=== PATIENT | female | born 1975 | race Caucasian/White ===

== ENCOUNTER → 2018-08-30 | Outpatient (CLI) | payer OTHER ==
--- NOTE | 2018-08-30 13:36 | MM ---
Reason for exam: screening (asymptomatic). Baseline mammogram. History: Patient has history of other cancer at age 40. Physical Findings: Nurse did not find any significant physical abnormalities on exam. MG Screening Mammo w CAD Bilateral CC and MLO view(s) were taken. LM and LM with magnification view(s) were taken of the left breast. The breast tissue is heterogeneously dense. This may lower the sensitivity of mammography. There are regional fine calcifications in the left breast upper outer posterior positions. No suspicious cluster of calcification. There is nodularity in the left upper outer quadrant and ultrasound is recommended. ASSESSMENT: Incomplete: need additional imaging evaluation, BI-RAD 0 RECOMMENDATION: Ultrasound of the left breast.
--- NOTE | 2018-08-30 13:55 | USB ---
History: Patient has history of other cancer at age 40. US Breast Workup LT Left complete breast ultrasound includes all four quadrants, the retroareolar region and axilla. Finding demonstrates a 5 x 5 x 5 mm hypoechoic lesion at 12 o'clock, this may have posterior shadowing a biopsy is recommeded, a 1.3 x 1.0 x 1.1 cm oval Hypoechoic lesion at 2 o'clock, a 1.1 x 0.5 x 1.0 cm oval cystic lesion at 3 o'clock, a 5 x 3 x 5 mm oval to small to charectorized lesion at 11 o'clock , and a 1.0 x 0.7 x 0.9 cm oval hypoechoic lesion at 11 o'clock. In the absence of suspicious biopsy findings a 6 month follow up ultrasound of the left breast should be performed. For the lesion at 12 o'clock an ultrasound core is recommended. ASSESSMENT: Suspicious, BI-RAD 4 RECOMMENDATION: Ultrasound core biopsy of the left breast. Called Dr. Boyer with mammographic findings and has scheduled an appointment for the patient for 09/13/18 at 4:00pm with Dr. Sage. The ultrasound core biopsy is scheduled for 09/14/18 at 11:30 am. PRELIMINARY REPORT CALLED AND FAXED TO DR. SAGE ON 08/30/18. Ultrasound of the left breast in 6 months.
== END ==
LOC: RADMAMWWP 08:26
PROVIDERS: ATTEND Internal Medicine
DX: Z12.31 Encounter for screening mammogram for malignant neoplasm of breast (principal); R92.8 Other abnormal and inconclusive findings on diagnostic imaging of breast
CPT/HCPCS: 77067

== ENCOUNTER → 2018-09-13 | Outpatient (CLI) | payer OTHER ==
[2018-09-13 16:37] VITALS: BP 126/85; PULSE 85; RESP 18; TEMP 98.5
--- NOTE | 2018-09-13 16:50 | P.GSHP ---
History of Present Illness H&P Date: 09/13/18 Chief Complaint: abnormal ultrasound of the left breast Kyleigh is a 43-year-old white female who had her first ever mammogram performed on 120 [id number]. Following this it was recommended she undergo an ultrasound of the left breast for some nodularity in the upper outer quadrant area. On ultrasound she was noted to have a 5 x 5 mm hypoechoic lesion at 12: 00 for which ultrasound-guided core biopsy was recommended. Several other cystic type lesions were identified which were felt to be non-worrisome. The patient does not feel anything of concern in her breasts. She has no nipple discharge or skin changes of concern. She does not complain of any new breast pain. Family history: great grandmother maternal: ? type patient: melanoma in 2016 Hormonal History: menarche: 11 : 3, 3 children, breast fed: no, age at first: 19 periods: regular BCP: 1 year hormones: none Past surgical history: 1. Gallbladder 2. 3. Tonsillectomy 4. Mole excision Past Medical History: none Social History: smoke: none alcohol: three times/week drugs: none - Constitutional Constitutional: Reports sweats - EENT Comment: floaters in both eyes Eyes: denies pain Ears: deny: decreased hearing, tinnitus Ears, nose, mouth and throat: Denies headache, Denies sore throat - Breasts Breasts: bilateral: as per HPI - Cardiovascular Cardiovascular: Denies chest pain, Denies shortness of breath - Respiratory Respiratory: Denies cough, Denies 7 - Gastrointestinal Comment: nausea prior to BM Gastrointestinal: Reports nausea, Denies abdominal pain, Denies diarrhea, Denies vomiting - Genitourinary (Female) Genitourinary: Denies dysuria, Denies hematuria - Menstruation Menstruation: Reports period normal - Musculoskeletal Comment: 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, right elbow - Integumentary Integumentary: Denies pruritus, Denies rash - Neurological Neurological: Denies numbness, Denies weakness - Psychiatric Psychiatric: Reports anxiety, Denies depression - Endocrine Endocrine: Denies fatigue, Denies weight change - Hematologic/Lymphatic Comment: none - Allergic/Immunologic Allergic/Immunologic: Reports seasonal allergies Past Medical History Past Medical History: Cancer, GERD/Reflux Additional Past Medical History / Comment(s): sinus problems, melanoma (all clear as July 2018), chronic pelvic pain History of Any Multi-Drug Resistant Organisms: None Reported Past Surgical History: Section, Cholecystectomy, Tonsillectomy, Uterine Ablation Additional Past Surgical History / Comment(s): x1 (1994), Past Anesthesia/Blood Transfusion Reactions: No Reported Reaction Additional Past Anesthesia/Blood Transfusion Reaction / Comment(s): Pt had a blood transfusion d/t decreased hemoglobin secondary to heavy menstural periods Past Psychological History: No Psychological Hx Reported Smoking Status: Never smoker Past Alcohol Use History: Daily Additional Past Alcohol Use History / Comment(s): 3x week Past Drug Use History: Marijuana Additional Drug Use History / Comment(s): uses marijuana daily Medications and Allergies Home Medications Medication Instructions Recorded Confirmed Type No Known Home Medications 09/13/18 09/13/18 History Allergies Allergy/AdvReac Type Severity Reaction Status Date / Time ciprofloxacin [From Cipro] AdvReac Vomiting Verified 09/13/18 16:28 Surgical - Exam - General well developed, well nourished, no distress - Eyes normal ocular movement - ENT no hearing loss, no congestion - Neck no masses, trachea midline - Respiratory normal respiratory effort, clear to auscultation - Cardiovascular Rhythm: regular Heart Sounds: normal: S1, S2 - Abdomen Abdomen: soft, non tender, no guarding, no rigid, no rebound - Integumentary Well-healed scar left flank from resection of melanoma Scattered nevi on at the edge of the scar towards the medial aspect - Neurologic no disoriented, no combative - Musculoskeletal normal gait, normal posture - Psychiatric oriented to time, oriented to person, oriented to place, speech is normal, memory intact Breast examination: Right breast: Multi-positional exam no dominant masses or nodules of concern Right axilla: No adenopathy of concern Left breast: Multi-positional exam no dominant masses or nodules of concern Left axilla: No adenopathy of concern Scattered nevi on the breast are identified patient is recommended to follow with dermatology tattoo left chest wall Results Mammogram and ultrasound report reviewed Assessment and Plan Assessment: Impression: 1. Radiographic abnormality left breast 2. Bilateral fibrocystic breast changes 3. History of melanoma 4. Nevi as mentioned and physical exam Plan: 1. Ultrasound-guided core biopsy of left breast 2. Follow up with dermatology 3. Follow-up. One week after ultrasound core biopsy of left breast CC:DR. Boyer
== END ==
LOC: WWCWWP 16:00
PROVIDERS: ATTEND Surgery
DX: Z53.9 Procedure and treatment not carried out, unspecified reason (principal)

== ENCOUNTER → 2018-09-14 | Day surgery (SDC) | payer OTHER ==
[2018-09-14 10:49] VITALS: RESP 16; BMI 35.6
[2018-09-14 12:08] VITALS: BP 141/82; PULSE 66; TEMP 98.5
--- NOTE | 2018-09-14 12:46 | USB ---
EXAMINATION TYPE: US biopsy breast VAD LT, MG diagnostic mammo LT wo CAD DATE OF EXAM: 09/14/2018 CLINICAL HISTORY: R92.8 ABN MAMMO. TECHNIQUE: Ultrasound guided core biopsy of left breast in the upper-outer quadrant. COMPARISON: 08/30/2018 FINDINGS: The procedure of ultrasound guided core biopsy was explained to the patient. Benefits, alternatives, and risks were discussed. An informed consent was then obtained. Preprocedural timeout was performed. The patient was placed in supine positioning for imaging and for the procedure. The overlying skin was prepped and draped in usual sterile fashion. 10 cc of lidocaine buffered with bicarbonate was used as anesthetic into the skin and subcutaneous tissue up to the prior by 5 x 5 mm hypoechoic lesion near the 12: 00 position in zone B/C. Under ultrasound guidance, a 12-gauge vacuum assisted biopsy gun device was used to obtain 4 core samples. Following this, a coil-shaped biopsy marker at the biopsy site. The patient tolerated the procedure well without any immediate complication. The patient was kept in the radiology department for short stay after the procedure and then discharged home in stable condition. IMPRESSION: Successful, uncomplicated ultrasound guided core biopsy of area of a 5 x 5 x 5 mm mass near the 12:00 position of the left breast, full pathology results to follow. There are other probably benign left breast matches seen on the ultrasound dated 08/30/2018 for which six-month follow-up was recommended. Pathology Results: Benign LEFT BREAST, ULTRASOUND GUIDED CORE BIOPSY: Fibroadenoma. Recommendation Follow up ultrasound of the left breast in 6 months. Attention to the 2 o'clock and 11 o'clock and two lesions which were not biopsied. LASHONDAD
== END ==
LOC: RADUSWWP 10:32
PROVIDERS: ATTEND Surgery
DX: D24.2 Benign neoplasm of left breast (principal)
CPT/HCPCS: 88305; 77065; 19083; A4648; J2001

== ENCOUNTER → 2018-09-18 | Outpatient (CLI) | payer OTHER ==
--- NOTE | 2018-09-18 12:02 | US ---
EXAMINATION TYPE: US pelvic complete DATE OF EXAM: 09/18/2018 COMPARISON: US 09/01/2015 CLINICAL HISTORY: 43-year-old female R10.2 Pelvic pain. TECHNIQUE: Transabdominal sonographic images of the pelvis were acquired. Date of LMP: LMP about 3 weeks ago FINDINGS: EXAM MEASUREMENTS: Uterus: 10.6 x 5.9 x 5.9 cm Endometrial Stripe: 1.4 cm Right Ovary: 2.2 x 1.5 x 1.9 cm Left Ovary: 3.1 x 1.4 x 2.6 cm 1. Uterus: Anteverted. Heterogeneous myometrium. 2. Endometrium: Measuring normal for patient's phase of cycle 3. Right Ovary: wnl 4. Left Ovary: wnl 5. Bilateral Adnexa: wnl 6. Posterior cul-de-sac: wnl IMPRESSION: 1. Myometrial heterogeneity is nonspecific but may be seen in the setting of adenomyosis or diffuse s mall fibroid change. 2. Endometrial stripe measures 1.4 cm and should correspond to the late secretory phase of the menstr ual cycle.
== END | disposition home or self-care (01) ==
LOC: RADUSWWP 08:57
PROVIDERS: ATTEND Obstetrics & Gynecology
DX: R10.2 Pelvic and perineal pain (principal)
CPT/HCPCS: 76856

== ENCOUNTER → 2018-09-20 | Outpatient (CLI) | payer OTHER ==
[2018-09-20 15:09] VITALS: BP 133/66; PULSE 75; RESP 18; TEMP 98.2
--- NOTE | 2018-09-20 15:16 | P.PN ---
Subjective Progress Note Date: 09/20/18 Principal diagnosis: fibroadenoma Kyleigh is a 43-year-old white female status post ultrasound-guided core biopsy of the left breast on . Pathology revealed a fibroadenoma. The patient has Some mild ecchymosis but otherwise no complaints related to the procedure. Objective - Vital Signs Vital signs: Vital Signs Temp 98.2 F 09/20/18 15:06 Pulse 75 09/20/18 15:06 Resp 18 09/20/18 15:06 BP 133/66 09/20/18 15:06 Pulse Ox 96 09/20/18 15:06 Intake & Output 09/19/18 09/20/18 09/20/18 18:59 06:59 18:59 Weight 90.718 kg - Constitutional General appearance: Present: obese - EENT Eyes: Present: EOMI ENT: Present: hearing grossly normal - Respiratory Respiratory: bilateral: CTA - Cardiovascular Rhythm: regular Heart sounds: normal: S1, S2 - Musculoskeletal Musculoskeletal: Present: gait normal - Psychiatric Psychiatric: Present: A&O x's 3, appropriate affect, intact judgment & insight - Additional findings Additional findings: Left breast core biopsy site mild ecchymosis No hematoma No evidence of infection Assessment and Plan Assessment: Impression: 1. Left breast core biopsy/ultrasound guided, fibroadenoma 2. Fibrocystic breast changes 3. History of melanoma Plan: 1. Repeat left breast mammogram and ultrasound in 6 months time 2. Physician exam after mammogram and ultrasound 3. Follow-up with dermatology Cc: Dr. Boyer
== END ==
LOC: WWCWWP 14:50
PROVIDERS: ATTEND Surgery
DX: Z53.9 Procedure and treatment not carried out, unspecified reason (principal)

== ENCOUNTER 2018-10-09 10:33 | Emergency (ER) | payer OTHER ==
[2018-10-09 11:02] VITALS: BP 128/68; PULSE 106; RESP 18; TEMP 98.5
--- NOTE | 2018-10-09 11:25 | ED ---
General Adult HPI - General Chief complaint: ENT Stated complaint: FB in throat Time Seen by Provider: 10/09/18 11:03 Source: patient Mode of arrival: ambulatory Limitations: no limitations - History of Present Illness Initial comments: Dictation was produced using [employer] dictation software. please excuse any grammatical, word or spelling errors. Chief Complaint: 43-year-old female presents with foreign body sensation in the throat History of Present Illness: She is a 43-year-old female past medical history of GERD, reflux presents with foreign body sensation in the oropharynx region. Patient states her symptoms have been ongoing for approximately 3 weeks. States that she feels a palpable mass on the left face and tongue. She states that it's slightly painful when she swallows. Denies any other symptoms at this time. No difficulty breathing or difficulty swallowing. Fevers or B type symptoms. The ROS documented in this emergency department record has been reviewed and confirmed by me. Those systems with pertinent positive or negative responses have been documented in the HPI. All other systems are other negative and/or noncontributory. PHYSICAL EXAM: General Impression: Alert and oriented x3, not in acute distress HEENT: Normocephalic atraumatic, extra-ocular movements intact, pupils equal and reactive to light bilaterally, mucous membranes moist, small 3 x 3 mm area of induration at the base of the tongue just anterior to the left anterior raphe Cardiovascular: Heart regular rate and rhythm, S1&S2 audible, no murmurs, rubs or gallops Chest: Lungs clear to auscultation bilaterally, no rhonchi, no wheeze, no rales Abdomen: Bowel sounds present, abdomen soft, non-tender, non-distended, no organomegaly Musculoskeletal: Pulses present and equal in all extremities, no peripheral edema Motor: Power 5/5 bilaterally, no focal deficits noted Neurological: CN II-XII grossly intact, no focal motor or sensory deficits noted Skin: Intact with no visualized rashes Psych: Normal affect and mood ED course: 43-year-old female presents with foreign body sensation to the oropharyngeal area signs upon arrival are within acceptable limits. Patient's well-appearing. There is a identifiable mass located to the area of the left tonsillar pillar. No clinical suspicion of acute airway or upper GI compromise. She decision-making performed with patient who requests that CT of the soft tissues of the neck be performed. Patient has a history of bilateral tubal ligation. CT soft tissue of the neck with contrast shows not acute processes. Patient in stable medical condition. Patient given referral to ear machine operator for further evaluation and outpatient management of symptoms. - Related Data Home Medications Medication Instructions Recorded Confirmed Ibuprofen [Motrin Ib] 800 mg PO Q6H PRN 10/09/18 10/09/18 Ranitidine HCl [Zantac] 75 mg PO BID PRN 10/09/18 10/09/18 guaiFENesin [Mucinex] 600 mg PO Q12H PRN 10/09/18 10/09/18 Allergies Allergy/AdvReac Type Severity Reaction Status Date / Time ciprofloxacin [From Cipro] AdvReac Vomiting Verified 10/09/18 11:54 Review of Systems ROS Statement: Those systems with pertinent positive or pertinent negative responses have been documented in the HPI. ROS Other: All systems not noted in ROS Statement are negative. Past Medical History Past Medical History: Cancer, GERD/Reflux Additional Past Medical History / Comment(s): sinus problems, melanoma (all clear as of July 2018), chronic pelvic pain History of Any Multi-Drug Resistant Organisms: None Reported Past Surgical History: Section, Cholecystectomy, Tonsillectomy, Uterine Ablation Additional Past Surgical History / Comment(s): x1 (1994), Past Anesthesia/Blood Transfusion Reactions: No Reported Reaction Additional Past Anesthesia/Blood Transfusion Reaction / Comment(s): Pt had a blood transfusion d/t decreased hemoglobin secondary to heavy menstural periods Past Psychological History: Anxiety, Depression Smoking Status: Never smoker Past Alcohol Use History: Daily Past Drug Use History: Marijuana General Exam Limitations: no limitations Course Vital Signs 10/09/18 10:58 Temperature 98.5 F Pulse Rate 106 H Respiratory 18 Rate Blood Pressure 128/68 O2 Sat by Pulse 100 Oximetry Disposition Clinical Impression: Foreign body alimentary tract Disposition: HOME SELF-CARE Condition: Good Instructions (If sedation given, give patient instructions): Indirect Laryngoscopy (DC) Is patient prescribed a controlled substance at d/c from ED?: No Referrals: Will Boyer MD [Primary Care Provider] - 1-2 days Cricket Monsivais DO [Doctor of Osteopathic Medicine] - 1-2 days Time of Disposition: 12:29
--- NOTE | 2018-10-09 12:06 | CT ---
EXAMINATION TYPE: CT soft tissue neck w con DATE OF EXAM: 10/09/2018 HISTORY: Feels lump on Lt side of tongue, difficulty swallowing COMPARISON: NONE CT DLP: 238.1 mGycm. Automated Exposure Control for Dose Reduction was Utilized. TECHNIQUE: CT scan of the neck is performed with IV Contrast, patient injected with 100 mL of Isovue 300, axial images are obtained, coronal and sagittal reformatted images are reviewed. FINDINGS: Airway: The nasopharyngeal airway is patent. Oropharyngeal airway shows no obvious abnormality includ ing area of clinical concern left tongue base. There is fullness in the vallecula sagittal image 43 a nd axial image 47 extending to right of midline favoring retained secretions, mass at this level felt less likely. Region of the piriform sinuses felt within normal limits. Vertebral pharyngeal airway i s unremarkable. Thyroid gland is normal in size. Lung apices are clear Parotid/submandibular glands: No gross abnormality seen. Carotid/Vascular Structures: No significant plaque at carotid bulb level bilaterally. Osseous Structures: No suspicious abnormality seen. Other: There are scattered subcentimeter lymph nodes throughout the neck bilaterally. No suspicious g reater than 1 cm neck adenopathy is seen. Parapharyngeal fat spaces are maintained. IMPRESSION: No suspicious mass or adenopathy to account for patient's symptoms. Fullness of the vall ecula favors retained secretions. Would still advised ENT referral to evaluate and definitively exclu de small mucosal tongue base mass or lesion.
== END 2018-10-09 13:00 | disposition home or self-care (01) ==
LOC: EC 10:33
DX: T18.9XXA Foreign body of alimentary tract, part unspecified, initial encounter (principal); Z88.1 Allergy status to other antibiotic agents; Z90.89 Acquired absence of other organs; Z85.820 Personal history of malignant melanoma of skin; Z98.51 Tubal ligation status
CPT/HCPCS: 70491; 99283; Q9967

== ENCOUNTER 2018-12-19 16:55 | Emergency (ER) | payer OTHER ==
[2018-12-19 16:59] VITALS: TEMP 97.9
--- NOTE | 2018-12-19 17:33 | ED ---
General Adult HPI - General Chief complaint: Arrhythmia/Palpitations Stated complaint: heart racing Time Seen by Provider: 12/19/18 17:00 Source: patient, RN notes reviewed Mode of arrival: wheelchair Limitations: no limitations - History of Present Illness Initial comments: This is a 43-year-old female who presents emergency department stating that over the last few weeks she's having an occasional palpitations and then it resolves. Patient states she has no chest pain shortness of breath or difficulty breathing when it occurs but it only last a couple seconds and then goes away. Patient states she does know anything that makes it come on however in recent days she has quit any alcohol she's quit smoking marijuana she is stop caffeine intake and she has been on a bunch of decongestants recently which she has stopped about 4 days ago. Patient states that again occurred today so she decided to come in to get checked out. Patient states currently lying in bed she feels fine but occasionally she will have one of these palpitations. Patie nt denies any swelling to the legs or calf tenderness. Patient denies any recent fever chills or cough. Patient denies any lightheadedness dizziness or near syncopal episode. - Related Data Home Medications Medication Instructions Recorded Confirmed Ibuprofen [Motrin Ib] 800 mg PO Q6H PRN 10/09/18 12/19/18 Allergies Allergy/AdvReac Type Severity Reaction Status Date / Time ciprofloxacin [From Cipro] AdvReac Vomiting Verified 12/19/18 17:41 Review of Systems ROS Statement: Those systems with pertinent positive or pertinent negative responses have been documented in the HPI. ROS Other: All systems not noted in ROS Statement are negative. Past Medical History Past Medical History: Cancer, GERD/Reflux Additional Past Medical History / Comment(s): sinus problems, melanoma (all clear as of July 2018), chronic pelvic pain History of Any Multi-Drug Resistant Organisms: None Reported Past Surgical History: Section, Cholecystectomy, Tonsillectomy, Uterine Ablation Additional Past Surgical History / Comment(s): x1 (1994), Past Anesthesia/Blood Transfusion Reactions: No Reported Reaction Additional Past Anesthesia/Blood Transfusion Reaction / Comment(s): Pt had a blood transfusion d/t decreased hemoglobin secondary to heavy menstural periods Past Psychological History: Anxiety, Depression Smoking Status: Never smoker Past Alcohol Use History: Daily Past Drug Use History: Marijuana General Exam - General Exam Comments Initial Comments: GENERAL: Patient is well-developed and well-nourished. Patient is nontoxic and well- hydrated and is in no acute distress. ENT: Neck is soft and supple. No significant lymphadenopathy is noted. Oropharynx is clear. Moist mucous membranes. Neck has full range of motion without eliciting any pain. EYES: The sclera were anicteric and conjunctiva were pink and moist. Extraocular movements were intact and pupils were equal round and reactive to light. Eyelids were unremarkable. PULMONARY: Unlabored respirations. Good breath sounds bilaterally. No audible rales rhonchi or wheezing was noted. CARDIOVASCULAR: There is a regular rate and rhythm without any murmurs gallops or rubs. ABDOMEN: Soft and nontender with normal bowel sounds. No palpable organomegaly was noted. There is no palpable pulsatile mass. SKIN: Skin is clear with no lesions or rashes and otherwise unremarkable. NEUROLOGIC: Patient is alert and oriented x3. Cranial nerves II through XII are grossly intact. Motor and sensory are also intact. Normal speech, volume and content. Symmetrical smile. MUSCULOSKELETAL: Normal extremities with adequate strength and full range of motion. No lower extremity swelling or edema. No calf tenderness. LYMPHATICS: No significant lymphadenopathy is noted PSYCHIATRIC: Normal psychiatric evaluation Limitations: no limitations Course Vital Signs 12/19/18 12/19/18 12/19/18 16:57 17: 18:12 Temperature 97.9 F Pulse Rate 105 H 84 Pulse Rate [ 84 Bilateral Machine Setter Automatic ] Respiratory 22 18 Rate Blood Pressure 160/104 127/83 O2 Sat by Pulse 100 100 Oximetry Medical Decision Making - Medical Decision Making EKG shows a normal sinus rhythm at a rate of 96 bpm IA interval 248 QRSs 84 QT interval 348 QTC is 439. Patient's EKG shows no ST segment elevation or depression or T wave abnormalities are noted. Chest x-ray shows no acute abnormalities. Patient had no palpitations while in the emergency department so we were unable to verify whether these were PVCs or PACs or if she was having some arrhythmia. Patient at this time has no complaints she will follow-up with primary medical care doctor and possibly get an event monitor placed - Lab Data Result diagrams: 12/19/18 17:10 12/19/18 17:10 Lab Results 12/19/18 12/19/18 12/19/18 Range/Units 17:10 17:10 17:10 WBC 8.5 (3.8-10.6) k/uL RBC 4.56 (3.80-5.40) m/uL Hgb 13.2 (11.4-16.0) gm/dL Hct 40.7 (34.0-46.0) % MCV 89.3 (80.0-100.0) fL MCH 28.8 (25.0-35.0) pg MCHC 32.3 (31.0-37.0) g/dL RDW 12.7 (11.5-15.5) % Plt Count 314 (150-450) k/uL Neutrophils % 64 % Lymphocytes % 27 % Monocytes % 5 % Eosinophils % 3 % Basophils % 0 % Neutrophils # 5.4 (1.3-7.7) k/uL Lymphocytes # 2.3 (1.0-4.8) k/uL Monocytes # 0.4 (0-1.0) k/uL Eosinophils # 0.2 (0-0.7) k/uL Basophils # 0.0 (0-0.2) k/uL PT 10.1 (9.0-12.0) sec INR 0.9 (<1.2) APTT 29.7 (22.0-30.0) sec Sodium 140 (137-145) mmol/L Potassium 3.5 (3.5-5.1) mmol/L Chloride 105 (98-107) mmol/L Carbon Dioxide 24 (22-30) mmol/L Anion Gap 11 mmol/L BUN 9 (7-17) mg/dL Creatinine 0.60 (0.52-1.04) mg/dL Est GFR (CKD-EPI)AfAm >90 (>60 ml/min/1.73 sqM) Est GFR (CKD-EPI)NonAf >90 (>60 ml/min/1.73 sqM) Glucose 105 H (74-99) mg/dL Calcium 9.6 (8.4-10.2) mg/dL Magnesium 1.8 (1.6-2.3) mg/dL Total Bilirubin 0.4 (0.2-1.3) mg/dL AST 20 (14-36) U/L ALT 22 (9-52) U/L Alkaline Phosphatase 57 (38-126) U/L Troponin I (0.000-0.034) ng/mL Total Protein 8.0 (6.3-8.2) g/dL Albumin 5.0 (3.5-5.0) g/dL TSH 5.610 H (0.465-4.680) mIU/L Free T4 1.00 (0.78-2.19) ng/dL 12/19/18 Range/Units 17:10 WBC (3.8-10.6) k/uL RBC (3.80-5.40) m/uL Hgb (11.4-16.0) gm/dL Hct (34.0-46.0) % MCV (80.0-100.0) fL MCH (25.0-35.0) pg MCHC (31.0-37.0) g/dL RDW (11.5-15.5) % Plt Count (150-450) k/uL Neutrophils % % Lymphocytes % % Monocytes % % Eosinophils % % Basophils % % Neutrophils # (1.3-7.7) k/uL Lymphocytes # (1.0-4.8) k/uL Monocytes # (0-1.0) k/uL Eosinophils # (0-0.7) k/uL Basophils # (0-0.2) k/uL PT (9.0-12.0) sec INR (<1.2) APTT (22.0-30.0) sec Sodium (137-145) mmol/L Potassium (3.5-5.1) mmol/L Chloride (98-107) mmol/L Carbon Dioxide (22-30) mmol/L Anion Gap mmol/L BUN (7-17) mg/dL Creatinine (0.52-1.04) mg/dL Est GFR (CKD-EPI)AfAm (>60 ml/min/1.73 sqM) Est GFR (CKD-EPI)NonAf (>60 ml/min/1.73 sqM) Glucose (74-99) mg/dL Calcium (8.4-10.2) mg/dL Magnesium (1.6-2.3) mg/dL Total Bilirubin (0.2-1.3) mg/dL AST (14-36) U/L ALT (9-52) U/L Alkaline Phosphatase (38-126) U/L Troponin I <0.012 (0.000-0.034) ng/mL Total Protein (6.3-8.2) g/dL Albumin (3.5-5.0) g/dL TSH (0.465-4.680) mIU/L Free T4 (0.78-2.19) ng/dL Disposition Clinical Impression: Palpitations Disposition: HOME SELF-CARE Condition: Good Instructions (If sedation given, give patient instructions): Heart Palpitations (ED) Is patient prescribed a controlled substance at d/c from ED?: No Referrals: Will Boyer MD [Primary Care Provider] - 1-2 days Time of Disposition: 18:24
[2018-12-19 17:43] LABS: Basophils % (A) 0 %; Eosinophils # (A) 0.2 k/uL (0-0.7); Eosinophils % (A) 3 %; HCT 40.7 % (34.0-46.0); HGB 13.2 gm/dL (11.4-16.0); Lymphocytes # (A) 2.3 k/uL (1.0-4.8); Lymphocytes % (A) 27 %; MCH 28.8 pg (25.0-35.0); MCHC 32.3 g/dL (31.0-37.0); MCV 89.3 fL (80.0-100.0); Mean Platelet Volume 7.5; Monocytes # (A) 0.4 k/uL (0-1.0); Monocytes % (A) 5 %; Neutrophils # (A) 5.4 k/uL (1.3-7.7); Neutrophils % (A) 64 %; Platelet Count 314 k/uL (150-450); RBC 4.56 m/uL (3.80-5.40); RDW 12.7 % (11.5-15.5); WBC 8.5 k/uL (3.8-10.6)
[2018-12-19 17:52] LABS: INR 0.9 (<1.2); Partial Thromboplastin Time 29.7 sec (22.0-30.0); Prothrombin Time 10.1 sec (9.0-12.0)
[2018-12-19 17:53] LABS: ALT 22 U/L (9-52); AST 20 U/L (14-36); Alkaline Phosphatase 57 U/L (38-126); Anion Gap 11 mmol/L; Blood Urea Nitrogen 9 mg/dL (7-17); Calcium 9.6 mg/dL (8.4-10.2); Carbon Dioxide 24 mmol/L (22-30); Chloride 105 mmol/L (98-107); Glucose 105 mg/dL (74-99); Magnesium 1.8 mg/dL (1.6-2.3); Potassium 3.5 mmol/L (3.5-5.1); Sodium 140 mmol/L (137-145); Total Bilirubin 0.4 mg/dL (0.2-1.3)
[2018-12-19 18:14] VITALS: RESP 18
--- NOTE | 2018-12-19 18:17 | XR ---
EXAMINATION TYPE: XR chest 2V DATE OF EXAM: 12/19/2018 COMPARISON: NONE HISTORY: Heart palpitations and hypertension for 2 weeks. TECHNIQUE: Frontal and lateral views of the chest are obtained. FINDINGS: Overlying EKG leads are seen. There is no focal air space opacity, pleural effusion, or pn eumothorax seen. The cardiac silhouette size is within normal limits. The osseous structures are i ntact. Cholecystectomy clips are noted on lateral view. IMPRESSION: No acute process.
[2018-12-19 18:51] VITALS: BP 145/80; PULSE 80
== END 2018-12-19 18:49 | disposition home or self-care (01) ==
LOC: EC 16:55
DX: R00.2 Palpitations (principal); Z85.820 Personal history of malignant melanoma of skin; Z88.1 Allergy status to other antibiotic agents
CPT/HCPCS: 36415; 71046; 80053; 83735; 84439; 84443; 84484; 85025; 85610; 85730; 93005; 99285

== ENCOUNTER → 2021-09-06 | Outpatient (CLI) | payer SELFPAY ==
--- NOTE | 2021-10-01 18:24 | EM ---
EVENT MONITOR Patient was monitored between September 06 and September 16, 2021. The rhythm strip revealed sinus mechanism with episodes of sinus tachycardia. There were rare single PVCs. Symptoms of irregular heartbeat and flutter correlated with sinus mechanism and at times with sinus tachycardia. MMCLAIRE / YOVANIN: [id number] /
== END | disposition home or self-care (01) ==
LOC: RADECHMAIN 07:18
PROVIDERS: ATTEND Family Medicine
DX: I49.3 Ventricular premature depolarization (principal); R00.0 Tachycardia, unspecified
CPT/HCPCS: 93270